=== PATIENT | female | born 1955 | race Caucasian/White ===

== ENCOUNTER 2017-01-13 10:39 | Inpatient (IN) | payer MEDICAID ==
[~2017-01-13] VITALS: Ht 170.2 cm; Wt 72.1 kg
[2017-01-13 11:21] LABS: BASOPHIL % 0.4 % (0-2)
[2017-01-13 11:31] LABS: CARBON DIOXIDE 21.9 mmol/L (21-32); CHLORIDE SERUM 92 mmol/L (98-107); CREATININE SERUM 0.7 mg/dL (0.6-1.0); GFR1 > 60 mL/min; GLUCOSE SERUM 97 mg/dL (74-106); POTASSIUM SERUM 3.2 mmol/L (3.5-5.1); SODIUM SERUM 131 mmol/L (136-145)
[2017-01-13 11:34] LABS: PLATELET COUNT 80 x10^3mcL (130-400); RED CELL DISTRIBUTION WIDTH 18.5 % (11.5-14.5)
[2017-01-13 11:45] LABS: ALKALINE PHOSPHATASE 176 U/L (46-116); ALT/SGPT 25 U/L (14-59); AST/SGOT 47 U/L (15-37); BILIRUBIN TOTAL 0.8 mg/dL (0.20-1.00); FREE T4 1.02 ng/dL (0.76-1.46); LIPASE 432 IU/L (73-393); MAGNESIUM 1.7 mg/dL (1.8-2.4); TOTAL PROTEIN, SERUM 6.9 g/dL (6.4-8.2)
[2017-01-13 11:58] LABS: ALBUMIN 3.2 g/dL (3.4-5.0)
[2017-01-13 12:49] LABS: microscopic required? YES; urine erythrocyte 3+ (NEGATIVE)
[2017-01-13 15:12] LABS: T3 TOTAL 0.89 ng/mL
[2017-01-13 15:13] LABS: CHOLESTEROL/HDL RATIO 1.5; FREE T4 1.02 ng/dL (0.76-1.46); FREE THYROXINE INDEX 2.4 ug/dL (1.4-4.5); T4(THYROXINE) 6.1 ug/dL (4.7-13.3)
[2017-01-13 15:21] VITALS: BP 118/87
[2017-01-13 18:05] VITALS: BP 173/101
[2017-01-13 21:04] VITALS: BP 146/84
[2017-01-14 05:29] VITALS: BP 168/102
[2017-01-14 06:10] LABS: BASOPHIL % 0.5 % (0-2)
[2017-01-14 06:21] LABS: CARBON DIOXIDE 24.1 mmol/L (21-32); CHLORIDE SERUM 99 mmol/L (98-107); CREATININE SERUM 0.6 mg/dL (0.6-1.0); GFR1 > 60 mL/min; GLUCOSE SERUM 100 mg/dL (74-106); MAGNESIUM 1.7 mg/dL (1.8-2.4); PHOSPHOROUS 1.9 mg/dL (2.5-4.9); POTASSIUM SERUM 3.9 mmol/L (3.5-5.1); SODIUM SERUM 132 mmol/L (136-145)
[2017-01-14 06:29] LABS: PLATELET COUNT 57 x10^3mcL (130-400); RED CELL DISTRIBUTION WIDTH 18.2 % (11.5-14.5)
[2017-01-14 09:39] VITALS: BP 150/87
[2017-01-14 13:15] VITALS: BP 151/91
[2017-01-14 17:12] VITALS: BP 136/80
[2017-01-14 21:37] VITALS: BP 148/96
[2017-01-15] VITALS (7 sets, daily range): BP systolic 139–183; BP diastolic 85–106
[2017-01-15 06:43] LABS: BASOPHIL % 0.4 % (0-2); PLATELET COUNT 60 x10^3mcL (130-400); RED CELL DISTRIBUTION WIDTH 18.1 % (11.5-14.5)
[2017-01-15 06:47] LABS: CALCIUM 8.4 mg/dL (8.5-10.1); CARBON DIOXIDE 26.1 mmol/L (21-32); CHLORIDE SERUM 102 mmol/L (98-107); CREATININE SERUM 0.4 mg/dL (0.6-1.0); GFR1 > 60 mL/min; GLUCOSE SERUM 107 mg/dL (74-106); MAGNESIUM 1.5 mg/dL (1.8-2.4); PHOSPHOROUS 2.2 mg/dL (2.5-4.9); POTASSIUM SERUM 3.9 mmol/L (3.5-5.1); SODIUM SERUM 134 mmol/L (136-145)
[2017-01-16 00:46] VITALS: BP 145/87
[2017-01-16 01:00] VITALS: Ht 170.2 cm; Wt 72.1 kg
[2017-01-16 05:35] VITALS: BP 149/94
[2017-01-16 06:56] LABS: CALCIUM 8.6 mg/dL (8.5-10.1); CARBON DIOXIDE 25.3 mmol/L (21-32); CHLORIDE SERUM 101 mmol/L (98-107); CREATININE SERUM 0.5 mg/dL (0.6-1.0); GFR1 > 60 mL/min; GLUCOSE SERUM 105 mg/dL (74-106); MAGNESIUM 2.1 mg/dL (1.8-2.4); PHOSPHOROUS 3.2 mg/dL (2.5-4.9); POTASSIUM SERUM 4.3 mmol/L (3.5-5.1); SODIUM SERUM 133 mmol/L (136-145); URIC ACID 3.4 mg/dL (2.6-6.0)
[2017-01-16 06:58] LABS: BASOPHIL % 0.4 % (0-2)
[2017-01-16 07:14] LABS: ALBUMIN 2.6 g/dL (3.4-5.0)
[2017-01-16 07:29] LABS: PLATELET COUNT 78 x10^3mcL (130-400); RED CELL DISTRIBUTION WIDTH 18.4 % (11.5-14.5)
[2017-01-16 09:38] VITALS: BP 126/88
[2017-01-16] MEDS ORDERED: METOPROLOL TART25 M1 PO (09:48)
[2017-01-16] MEDS ORDERED: LIPI10 PO (09:48)
[2017-01-16] MEDS ORDERED: ZES10 PO (09:49)
[2017-01-16] MEDS ORDERED: PROZ10 PO (09:53)
[2017-01-16] MEDS ORDERED: COL100 PO (09:53)
[2017-01-16] MEDS ORDERED: SYN25 PO (09:54)
[2017-01-16] MEDS ORDERED: PYR50 PO (09:58)
[2017-01-16 13:39] VITALS: BP 126/88
[2017-01-16 14:12] VITALS: BP 150/95
== END 2017-01-16 14:51 | disposition home or self-care (01) | DRG 422 ==
LOC: ED 10:39 → DU 14:10
PROVIDERS: Emergency Medicine; Family Medicine; ADMIT Family Medicine
DX: E86.0 Dehydration (principal); N17.0 Acute kidney failure with tubular necrosis; E43 Unspecified severe protein-calorie malnutrition; K85.90 Acute pancreatitis without necrosis or infection, unspecified; D61.818 Other pancytopenia; K76.0 Fatty (change of) liver, not elsewhere classified; G90.9 Disorder of the autonomic nervous system, unspecified; E83.51 Hypocalcemia; N20.0 Calculus of kidney; F33.1 Major depressive disorder, recurrent, moderate; E03.9 Hypothyroidism, unspecified; E87.1 Hypo-osmolality and hyponatremia; E87.6 Hypokalemia; E83.39 Other disorders of phosphorus metabolism; E83.42 Hypomagnesemia; D50.9 Iron deficiency anemia, unspecified; I16.0 Hypertensive urgency; Z68.24 Body mass index [BMI] 24.0-24.9, adult
CPT/HCPCS: 83880; 84439; 97116-GP; 97530-GP; G0480; J2270; J3411; J3475; J3490; J7030; Q0092

== ENCOUNTER 2017-01-22 13:00 | Inpatient (IN) | payer MEDICAID ==
[~2017-01-22] VITALS: Ht 170.2 cm; Wt 76.7 kg
[~2017-01-22 13:00] MED LIST: COL100 PO; LIPI10 PO; METOPROLOL TART25 M1 PO; PROZ10 PO; PYR50 PO; SYN25 PO; ZES10 PO
[2017-01-22 14:27] LABS: BASOPHIL % 0.3 % (0-2); PLATELET COUNT 204 x10^3mcL (130-400)
[2017-01-22 14:28] LABS: RED CELL DISTRIBUTION WIDTH 17.7 % (11.5-14.5)
[2017-01-22 14:56] LABS: ALKALINE PHOSPHATASE 151 U/L (46-116); ALT/SGPT 32 U/L (14-59); AST/SGOT 34 U/L (15-37); BILIRUBIN TOTAL 0.7 mg/dL (0.20-1.00); CALCIUM 8.4 mg/dL (8.5-10.1); CARBON DIOXIDE 26.6 mmol/L (21-32); CHLORIDE SERUM 90 mmol/L (98-107); CREATININE SERUM 0.4 mg/dL (0.6-1.0); GFR1 > 60 mL/min; GLUCOSE SERUM 93 mg/dL (74-106); POTASSIUM SERUM 4.1 mmol/L (3.5-5.1); SODIUM SERUM 125 mmol/L (136-145); TOTAL PROTEIN, SERUM 6.2 g/dL (6.4-8.2)
[2017-01-22 14:57] LABS: ALBUMIN 2.8 g/dL (3.4-5.0); CK-MB 0.8 ng/mL (0-3.6)
[2017-01-22 15:14] LABS: UA SPECIFIC GRAVITY 1.015 (1.005-1.035); microscopic required? YES; urine erythrocyte 2+ (NEGATIVE)
[2017-01-22] MEDS ORDERED: FLUOXETINE20 M3 PO (15:43)
[2017-01-22] MEDS ORDERED: LISINOPRIL10 MG PO (15:43)
[2017-01-22] MEDS ORDERED: PYR50 PO (15:44)
[2017-01-22] MEDS ORDERED: METOPROLOL TART25 M1 PO (15:44)
[2017-01-22] MEDS ORDERED: LEVOTHYROXIN0.025 M2 PO (15:44)
[2017-01-22] MEDS ORDERED: LIPI20 PO (15:44)
[2017-01-22 16:40] VITALS: BP 160/69
[2017-01-22 16:42] VITALS: Ht 170.2 cm; Wt 76.7 kg
[2017-01-22 17:13] LABS: CHOLESTEROL/HDL RATIO 1.5
[2017-01-22 17:20] LABS: FREE T4 1.11 ng/dL (0.76-1.46); T4(THYROXINE) 8.2 ug/dL (4.7-13.3)
[2017-01-22 17:38] LABS: T3 TOTAL 1.12 ng/mL
[2017-01-22 20:52] LABS: CALCIUM 7.9 mg/dL (8.5-10.1); CARBON DIOXIDE 24.3 mmol/L (21-32); CHLORIDE SERUM 96 mmol/L (98-107); CREATININE SERUM 0.3 mg/dL (0.6-1.0); GFR1 > 60 mL/min; GLUCOSE SERUM 78 mg/dL (74-106); POTASSIUM SERUM 3.8 mmol/L (3.5-5.1); SODIUM SERUM 128 mmol/L (136-145)
[2017-01-22 21:24] VITALS: BP 186/90
[2017-01-23] VITALS (7 sets, daily range): BP systolic 120–170; BP diastolic 63–97
[2017-01-23 06:30] LABS: BASOPHIL % 0.4 % (0-2); PLATELET COUNT 167 x10^3mcL (130-400)
[2017-01-23 06:50] LABS: CALCIUM 7.4 mg/dL (8.5-10.1); CARBON DIOXIDE 22.6 mmol/L (21-32); CHLORIDE SERUM 97 mmol/L (98-107); CREATININE SERUM 0.4 mg/dL (0.6-1.0); GFR1 > 60 mL/min; GLUCOSE SERUM 79 mg/dL (74-106); MAGNESIUM 1.3 mg/dL (1.8-2.4); PHOSPHOROUS 3.4 mg/dL (2.5-4.9); POTASSIUM SERUM 3.7 mmol/L (3.5-5.1); SODIUM SERUM 127 mmol/L (136-145)
[2017-01-23 07:46] LABS: RED CELL DISTRIBUTION WIDTH 18.2 % (11.5-14.5)
[2017-01-23 14:35] LABS: BASOPHIL % 0.2 % (0-2); PLATELET COUNT 158 x10^3mcL (130-400)
[2017-01-23 14:38] LABS: CALCIUM 7.8 mg/dL (8.5-10.1); CARBON DIOXIDE 25.2 mmol/L (21-32); CHLORIDE SERUM 98 mmol/L (98-107); CREATININE SERUM 0.4 mg/dL (0.6-1.0); GFR1 > 60 mL/min; GLUCOSE SERUM 108 mg/dL (74-106); POTASSIUM SERUM 3.6 mmol/L (3.5-5.1); SODIUM SERUM 130 mmol/L (136-145)
[2017-01-23 14:39] LABS: RED CELL DISTRIBUTION WIDTH 17.8 % (11.5-14.5)
[2017-01-23 17:52] LABS: AMPHETAMINE QUAL UR NONE DETECTED (NEG <=1000)
[2017-01-24 06:15] VITALS: BP 136/70
[2017-01-24 07:28] LABS: BASOPHIL % 0.6 % (0-2); PLATELET COUNT 163 x10^3mcL (130-400); RED CELL DISTRIBUTION WIDTH 17.9 % (11.5-14.5)
[2017-01-24 07:30] VITALS: BP 146/77
[2017-01-24 07:35] LABS: CALCIUM 8.1 mg/dL (8.5-10.1); CARBON DIOXIDE 26.3 mmol/L (21-32); CHLORIDE SERUM 104 mmol/L (98-107); CREATININE SERUM 0.3 mg/dL (0.6-1.0); GFR1 > 60 mL/min; GLUCOSE SERUM 76 mg/dL (74-106); MAGNESIUM 2.3 mg/dL (1.8-2.4); PHOSPHOROUS 3.9 mg/dL (2.5-4.9); POTASSIUM SERUM 3.5 mmol/L (3.5-5.1); SODIUM SERUM 136 mmol/L (136-145)
[2017-01-24 14:20] VITALS: BP 148/74
[2017-01-24 18:00] VITALS: BP 134/85
[2017-01-24 21:34] VITALS: BP 158/93
[2017-01-25 06:04] VITALS: BP 150/79
[2017-01-25 06:18] LABS: BASOPHIL % 0.8 % (0-2); PLATELET COUNT 200 x10^3mcL (130-400)
[2017-01-25 06:25] LABS: CALCIUM 8.6 mg/dL (8.5-10.1); CARBON DIOXIDE 26.5 mmol/L (21-32); CHLORIDE SERUM 106 mmol/L (98-107); CREATININE SERUM 0.4 mg/dL (0.6-1.0); GFR1 > 60 mL/min; GLUCOSE SERUM 85 mg/dL (74-106); MAGNESIUM 1.9 mg/dL (1.8-2.4); PHOSPHOROUS 4.2 mg/dL (2.5-4.9); SODIUM SERUM 137 mmol/L (136-145)
[2017-01-25 06:34] LABS: RED CELL DISTRIBUTION WIDTH 18.1 % (11.5-14.5)
[2017-01-25 10:48] VITALS: BP 163/83
[2017-01-25 15:18] VITALS: BP 163/87
[2017-01-25 15:44] VITALS: BP 132/71
[2017-01-25 16:32] VITALS: BP 133/77
[2017-01-25 20:43] VITALS: BP 144/83
[2017-01-26 05:02] VITALS: BP 166/94
[2017-01-26 06:13] LABS: BASOPHIL % 0.6 % (0-2); PLATELET COUNT 191 x10^3mcL (130-400)
[2017-01-26 06:23] LABS: CALCIUM 8.8 mg/dL (8.5-10.1); CHLORIDE SERUM 101 mmol/L (98-107); CREATININE SERUM 0.5 mg/dL (0.6-1.0); GFR1 > 60 mL/min; GLUCOSE SERUM 88 mg/dL (74-106); POTASSIUM SERUM 4.1 mmol/L (3.5-5.1); SODIUM SERUM 133 mmol/L (136-145)
[2017-01-26 06:59] LABS: RED CELL DISTRIBUTION WIDTH 17.8 % (11.5-14.5)
[2017-01-26 09:09] VITALS: BP 171/88
[2017-01-26 17:01] VITALS: BP 190/105
[2017-01-26 17:10] VITALS: BP 158/91
[2017-01-26 21:58] VITALS: BP 171/99
[2017-01-26 22:32] VITALS: BP 132/82
[2017-01-27 05:52] LABS: BASOPHIL % 0.6 % (0-2); PLATELET COUNT 197 x10^3mcL (130-400)
[2017-01-27 06:10] LABS: CALCIUM 8.9 mg/dL (8.5-10.1); CARBON DIOXIDE 26.7 mmol/L (21-32); CHLORIDE SERUM 100 mmol/L (98-107); CREATININE SERUM 0.4 mg/dL (0.6-1.0); GFR1 > 60 mL/min; GLUCOSE SERUM 88 mg/dL (74-106); POTASSIUM SERUM 3.9 mmol/L (3.5-5.1); SODIUM SERUM 136 mmol/L (136-145)
[2017-01-27 06:12] VITALS: BP 144/94
[2017-01-27 06:44] LABS: RED CELL DISTRIBUTION WIDTH 17.6 % (11.5-14.5)
[2017-01-27 10:20] VITALS: BP 148/93
[2017-01-27 17:11] VITALS: BP 190/110
[2017-01-27 18:30] VITALS: BP 146/81
[2017-01-27 20:26] VITALS: BP 152/90
[2017-01-28 05:30] VITALS: BP 160/97
[2017-01-28 05:37] LABS: BASOPHIL % 0.4 % (0-2); PLATELET COUNT 191 x10^3mcL (130-400)
[2017-01-28 05:48] LABS: CALCIUM 8.9 mg/dL (8.5-10.1); CARBON DIOXIDE 26.4 mmol/L (21-32); CHLORIDE SERUM 101 mmol/L (98-107); CREATININE SERUM 0.4 mg/dL (0.6-1.0); GFR1 > 60 mL/min; GLUCOSE SERUM 96 mg/dL (74-106); POTASSIUM SERUM 3.8 mmol/L (3.5-5.1); SODIUM SERUM 136 mmol/L (136-145)
[2017-01-28 06:39] LABS: RED CELL DISTRIBUTION WIDTH 17.4 % (11.5-14.5)
[2017-01-28 09:42] VITALS: BP 170/87
[2017-01-28 11:22] VITALS: BP 167/88
[2017-01-28] MEDS ORDERED: ZES10 PO (14:29)
[2017-01-28] MEDS ORDERED: ROC1I IV ×2 (14:29→15:06)
[2017-01-28 15:01] VITALS: BP 154/80
[2017-01-28] MEDS ORDERED: LEVAQUIN750 MG PO (15:07)
== END 2017-01-28 15:32 | DRG 425 ==
LOC: ED 13:00 → DU 15:40 → MU 01-26 09:36
PROVIDERS: Emergency Medicine; Family Medicine; ADMIT Family Medicine
DX: E87.1 Hypo-osmolality and hyponatremia (principal); E43 Unspecified severe protein-calorie malnutrition; K76.0 Fatty (change of) liver, not elsewhere classified; F33.9 Major depressive disorder, recurrent, unspecified; I42.2 Other hypertrophic cardiomyopathy; E83.42 Hypomagnesemia; I16.0 Hypertensive urgency; N20.0 Calculus of kidney; E87.8 Other disorders of electrolyte and fluid balance, not elsewhere classified; E78.5 Hyperlipidemia, unspecified; E03.9 Hypothyroidism, unspecified; D64.9 Anemia, unspecified; Z68.26 Body mass index [BMI] 26.0-26.9, adult; F17.210 Nicotine dependence, cigarettes, uncomplicated
CPT/HCPCS: 80307; 82962; 83880; 84439; 97110-GP; 97116-GP; 97530-GP; G0378; G0480; J0360; J0696; J1885; J3475; J7030; J7120; Q0092